=== PATIENT | female | born 1990 | race Caucasian/White ===

== ENCOUNTER 2019-05-10 11:05 | Inpatient (IN) | payer BC, SELFPAY ==
[2019-05-10 11:42] VITALS: BMI 32.1
[2019-05-10] MEDS: Lactated Ringers 1,000 ML 50 ML IV (12:10)
[2019-05-10 12:13] LABS: Absolute Lymphocyte Count 1.52 X10^3/uL (0.83-4.51); Absolute Neutrophil Count 6.5 X10^3/uL (2.0-7.7); Basophil# 0.02 X10^3/uL; Basophil% 0.2 % (0-1); Eosinophil# 0.05 X10^3/uL; Eosinophils% 0.6 % (0-5); Hematocrit 37.9 % (37-47); Hemoglobin 12.6 g/dL (12.0-15.0); Lymphocyte # 1.52 X10^3/ul (4.0); Lymphocyte % 17.4 % (19-41); Mean Corp Hgb Conc 33.2 g/dL (32-36); Mean Corpuscular Hgb 28.4 pg (27.0-32.0); Mean Corpuscular Volume 85.6 fL (81-99); Mean Platelet Vol. 10.6 fl (6.2-12.0); Monocyte# 0.61 X10^3/uL; NRBC Flagged by Analyzer 0 % (0-5); Neutrophil # 6.49 X10^3/uL (2.7-7.7); Neutrophil % 74.3 % (47-70); Platelet Count 205 K/mm3 (150-450); RBC Distribution Width CV 13.6 % (11.6-14.6); RBC Distribution Width SD 42.2 fl (35.1-43.9); Red Blood Count 4.43 M/mm3 (4.2-5.4); White Blood Count 8.7 K/mm3 (4.4-11.0)
--- NOTE | 2019-05-10 16:11 | PCM.HP.OB ---
- Problem List (1) Premature rupture of membranes Status: Acute (2) Term Status: Acute History Date of Admission: 05/10/19 Final SOUMYA: 05/11/19 Gestational age: 39 Weeks and 6 Days History of this : This is a 29 year-old, G [1], P [0], at 39 weeks gestational age presented to L&D with complaint of PROM at 1000 this am. Clear fluid. Grossly ruptured upon presentation. Contractions irregular and infrequent, mild. Denies headache, visual changes, chest pain, shortness of breath, or vaginal bleeding. Good movement. Uncomplicated course. Allergies No Known Allergies Allergy (Verified 05/10/19 11:51) Home Medications: Home Medications Vits [Prenatabs FA] 1 tab PO DAILY 05/10/19 Smoking Status: Never smoker Alcohol: None Number of Fetus(es): 1 NST - FHR Rate Baby A Baseline: 125 Variability:: Moderate Accelerations:: 15 x 15 Decelerations:: None FHR Category:: Category I Uterine Activity:: Irregular, mild History Past Pregnancies: Past Pregnancies Delivery Date Name GA/Weeks Outcome Route Weight Infant Gender Labor Length Anesthesia Delivery Location Provider FOB Labs: HBsAG negative HIV negative Rubella immune RPR negative o positive GBS negative GC/CT negative Expected Delivery Method: Spontaneous Vaginal Review of Systems Constitutional: Denies: Chills, Fever, Weight Change HEENT: Denies: Head Aches, Sinus Congestion, Sinus Drainage Cardiovascular: Denies: Chest Pain, Palpitations Respiratory: Denies: Cough, Shortness of breath at rest, Sputum production Gastrointestinal: Denies: Abdominal Pain, Nausea, Vomiting Genitourinary: Denies: Dysuria Psychiatric: Denies: Anxiety, Depression, Homicidal Ideations, Suicidal Ideations Physical Exam General: Alert, Oriented x3, Cooperative HEENT: Atraumatic, Normocephalic Cardiovascular: Regular rate, Regular Rhythm, No murmurs Lungs: Clear to auscultation, Normal air movement, No rhonchi, No wheeze Abdomen: Soft, Gravid Extremities:: No edema Neurological: Deep Tendon Reflexes 2+/4 and Symmetrical. Negative for: Clonus PORTFOLIO CONSULTANT: Normal external genitalia Estimated gestational size: Appropriate for gestational size Presentation: Cephalic Cervix Dilation (cm): 0 - Per nursing staff Station: -3 Effacement (%): 0 Assessment/Plan All Active Problems Premature rupture of membranes (Acute) Term (Acute) This is a 29 year-old, G [2], P [1001], at 39 weeks gestational age. Category 1 FHT PROM P: 1) Routine labs, admit to L&D 2) Planning epidural for pain management 3) Discussed option for expectant management vs. active management. Patient would like to proceed with active management. Reviewed r/b/a of cytotec then pitocin, consents. Will give PO cytotec then Pitocin if needed. 4) notified of patient status.
[2019-05-10] MEDS: Lactated Ringers 500 ML 999 ML IV ×3 (17:48→23:57)
[2019-05-10] MEDS: Oxytocin 30 units/NS 500 ml 30 UNITS/500 ML IV.SOLN IV (18:30)
[2019-05-11] VITALS (22 sets, daily range): BP systolic 104–126; BP diastolic 55–79; PULSE 69–115; RESP 14–20; TEMP 35.9–36.7; O2SAT 97–100
[2019-05-11] MEDS: Lactated Ringers 500 ML 999 ML IV (00:38)
[2019-05-11] MEDS: Lactated Ringers 1,000 ML 195 ML IV (03:22)
[2019-05-11] MEDS: fentaNYL-bupivacaine (epidural) 100 ML BAG EPIDURAL ×2 (04:37)
[2019-05-11] MEDS: 0.9% Saline Lock 10 ML Syringe IV (06:25)
--- NOTE | 2019-05-11 08:32 | PCM.PN.BLA ---
Progress Note Seen at bedside. Resting comfortably with epidural in place. Patient has been ruptured since 10 AM on 05/10/2019 which is approximately 23 hours. Patient has been on Pitocin for over 12 hours and cervix is 1/2 cm dilated approximately 80% effaced -3 station. I reviewed with the patient definition of failed induction and options would be to continue to allow her to labor with Pitocin as tolerated versus a section. Based on the heart rate tracings the fetus is already having decelerations some prolonged some late and variables. Tracing is a category 2 patient is remote from delivery. Patient agrees to proceed with a primary section at this time.
[2019-05-11] MEDS: Lactated Ringers 1,000 ML 200 ML IV (08:49)
[2019-05-11] MEDS: Cefazolin 2 GM in 0.9% Normal Saline 100 ML IV (08:58)
--- NOTE | 2019-05-11 09:39 | OP.PCM_ITS ---
Report of Operation account support associate: Zaria Loyola Type of Anesthesia:: Epidural Specimen's removed: placenta Drains: smith Fluids Replaced: 1100 Grafts/Implants Used: none - Complications none Delivery Classification: SANDOVAL Final SOUMYA: 05/11/19 Final SOUMYA Source: US <20 weeks Gestational age: 40 Weeks and 0 Days Indications: Spontaneous rupture of membranes x23 hours, failed induction after over 13 hours of Pitocin, category 2 heart rate tracing remote from delivery Description of Procedure: After informed consent was obtained the patient was taken the operating room. She was then placed in the supine position. She was prepped and draped in the normal sterile fashion. Epidural Anesthesia was found to be adequate. At this time a Pfannenstiel skin incision was made with a knife was carried down to the underlying layer of the fascia. The fascial incision was then extended laterally using curved Quintanilla scissor. Tensions was then turned to the superior aspect of the fascial edge was grasped with 2 straight [place] clamps tented up and the rectus muscle dissected off sharply using curved Quintanilla scissor. Attention was then turned to the inferior aspect where again [place] clamps were placed in the rectus muscles were tented up and the fascia was dissected off sharply using the curved Quintanilla scissor. Rectus muscles were then in the midline bluntly and peritoneum was entered bluntly. Gentle opposing traction was placed. At this time the vesicouterine peritoneum was identified. Scalpel was used to make a uterine incision in a low transverse fashion. The uterus was then entered bluntly gentle opposing traction was placed to extend this incision. amniotic fluid still clear. Infant's head (noted to be in transverse position) was brought to the uterine incision was delivered atraumatically. delayed cord clapming- Cord was clamped and cut infant was handed to the waiting nursery team. The Placenta was removed from the uterus. The uterus was then removed from the abdominal cavity. The uterus was cleared of all clots and debris using a lap. At this time the uterine incision was reapproximated using #1 Vicryl in a running locked fashion. Followed by a second imbricating layer using #1 Vicryl. Hemostasis was appreciated. Posterior cul-de-sac was then cleared of all clots and debris. Uterus was placed back in the abdominal cavity. Gutters were cleared of all clots and debris. Uterine incision was reevaluated and noted to be of good hemostasis. Surgicel powder placed for any oozing. At this time the peritoneum and muscle was grasped with Kellys reapproximated using #2 Vicryl suture in a running fashion. Fascia was then reapproximated using #1 Vicryl in a running fashion. Subcu layer was reapproximated with #2 0 plain gut suture in an interrupted fashion. Subcu layer was closed using 4-0 Monocryl in a subcu fashion. Dry sterile dressing was applied. Instrument lap needle count correct ?2. Anticipated normal postoperative course. Amniotic Membrane Rupture Type: Spontaneous Amniotic Fluid Description: Clear Drain: Smith to straight drain Fluids Replaced: 1100 Cord Entanglement: None Cord Vessel Description: 3 Vessels Esitmated Blood Loss (ml): 600 Infant Gender: Male (1 minute): 9 (5 minute): 9 Delayed cord clamping: Yes Pre-op Antibiotic Given: Zithromax 500 mg/5 mL X1 Pt instructed on risks of surgery: Bleeding, Anesthesia Risks, Infection, Injury to surrounding structure(s) including bowel and bladder Complications: None - Admit VTE Documentation VTE Present on Admission: Yes VTE Mechan Device Prophylaxis: SCD's VTE Pharm Prophylaxis ordered?: Yes
[2019-05-11] MEDS: Oxytocin 30 units/NS 500 ml 30 UNITS/500 ML IV.SOLN 167 UNITS IV (10:08)
[2019-05-11] MEDS: Lactated Ringers 1,000 ML 100 ML IV ×2 (12:47→22:08)
[2019-05-11] MEDS: Ketorolac 30 MG/ML Syringe IV ×2 (17:17→22:07)
[2019-05-12] VITALS (8 sets, daily range): BP systolic 119–135; BP diastolic 72–76; PULSE 90–103; RESP 16–18; TEMP 36.1–37; O2SAT 99–100
[2019-05-12] MEDS: 0.9% Saline Lock 10 ML Syringe 5 ML IV ×4 (03:34→21:26)
[2019-05-12] MEDS: Ketorolac 30 MG/ML Syringe IV ×4 (03:34→21:25)
[2019-05-12] MEDS: Enoxaparin 40 MG/0.4 ML Syringe SC (05:25)
[2019-05-12 06:04] LABS: Hematocrit 27.1 % (37-47); Hemoglobin 8.8 g/dL (12.0-15.0); Mean Corp Hgb Conc 32.5 g/dL (32-36); Mean Corpuscular Hgb 29.1 pg (27.0-32.0); Mean Corpuscular Volume 89.7 fL (81-99); Mean Platelet Vol. 10.8 fl (6.2-12.0); Platelet Count 167 K/mm3 (150-450); RBC Distribution Width SD 45.5 fl (35.1-43.9); Red Blood Count 3.02 M/mm3 (4.2-5.4); White Blood Count 6.6 K/mm3 (4.4-11.0)
[2019-05-12] MEDS: Acetaminophen 500 MG Tablet 1000 MG PO ×2 (07:20→17:49)
--- NOTE | 2019-05-12 07:52 | PCM.PN.OB ---
Patient Problems: Active and Suspected Problems Premature rupture of membranes (Acute) Term (Acute) Subjective: Patient seen up to chair nursing baby. Patient reports is tender at incision site. She denies any chest pain, shortness of breath, dizziness, nausea, vomiting. Patient reports that she is not passing flatus yet. Patient states she is voiding without difficulty. Lochia is mild. - Physical Exam General: Alert, Oriented x3 Abdomen: Soft, Non-Distended, - - Fundus firm. Incision dressing is dry and intact. Her abdomen is appropriately tender Extremities: No Calf Tenderness Vital Signs Temp Pulse Resp BP Pulse Ox 97.0 F L 99 16 122/72 H 99 05/12/19 03:27 05/12/19 06:00 05/12/19 06:00 05/12/19 03:27 05/12/19 06:00 Oxygen Delivery Method Room Air Weight: 98.8 kg Body Mass Index (BMI) 32.1 Intake and Output for Last 24 Hours 05/10/19 05/11/19 05/12/19 23:59 23:59 23:59 Intake Total 2729.92 / 2729.92 7788.59 / 7788.59 848.33 / 848.33 Output Total 1100 / 1100 2025 / 2025 1600 / 1600 Balance 1629.92 / 1629.92 5763.59 / 5763.59 -751.67 / -751.67 Laboratory Tests Past 24 Hrs 05/12/19 05:24 WBC 6.6 RBC 3.02 L Hgb 8.8 L Hct 27.1 L MCV 89.7 MCH 29.1 MCHC 32.5 RDW Std Deviation 45.5 H RDW Coeff of Vandana 14.0 Plt Count 167 MPV 10.8 Medical Necessity - Tobacco Use Smoking Status: Never smoker Assessment/Plan All Active Problems Premature rupture of membranes (Acute) Term (Acute) Postop day #1. Acute blood loss anemia Repeat CBC at noon to make sure it is stable. Anticipate that some of this is hemodilution And her vital signs Ambulation Pain management
[2019-05-12 13:23] LABS: Hematocrit 28.6 % (37-47); Hemoglobin 9.2 g/dL (12.0-15.0); Mean Corp Hgb Conc 32.2 g/dL (32-36); Mean Corpuscular Hgb 28.8 pg (27.0-32.0); Mean Corpuscular Volume 89.7 fL (81-99); Mean Platelet Vol. 10.2 fl (6.2-12.0); Platelet Count 183 K/mm3 (150-450); RBC Distribution Width CV 13.9 % (11.6-14.6); RBC Distribution Width SD 45.1 fl (35.1-43.9); Red Blood Count 3.19 M/mm3 (4.2-5.4); White Blood Count 7.8 K/mm3 (4.4-11.0)
[2019-05-13 02:01] VITALS: BP 115/65; PULSE 96; RESP 14; TEMP 36; O2SAT 100
[2019-05-13] MEDS: Ketorolac 30 MG/ML Syringe IV (03:44)
[2019-05-13] MEDS: 0.9% Saline Lock 10 ML Syringe 5 ML IV (03:44)
[2019-05-13] MEDS: Enoxaparin 40 MG/0.4 ML Syringe SC (05:57)
[2019-05-13 08:14] VITALS: BP 121/71; PULSE 103; RESP 18; TEMP 35.9
--- NOTE | 2019-05-13 08:14 | PCM.PN.OB ---
Patient Problems: Active and Suspected Problems Premature rupture of membranes (Acute) Term (Acute) Subjective: Patient seen at bedside doing well. Patient reports good pain control. Denies any chest pain, shortness of breath. Patient reports is passing flatus. Voiding without difficulty. Breast-feeding is going well. Ready for DC home today. - Physical Exam General: Alert, Oriented x3 Abdomen: Soft, Non-Distended, Passing Flatus, - - Fundus firm. Incision dressing is dry and intact. Extremities: No Calf Tenderness Vital Signs Temp Pulse Resp BP Pulse Ox 96.8 F L 96 14 115/65 100 05/13/19 02:01 05/13/19 02:01 05/13/19 02:01 05/13/19 02:01 05/13/19 02:01 Oxygen Delivery Method Room Air Weight: 98.8 kg Body Mass Index (BMI) 32.1 Intake and Output for Last 24 Hours 05/11/19 05/12/19 05/13/19 23:59 23:59 23:59 Intake Total 7788.59 / 7788.59 848.33 / 848.33 Output Total 2024 / 2024 1600 / 1600 Balance 5763.59 / 5763.59 -751.67 / -751.67 Laboratory Tests Past 24 Hrs 05/12/19 13:10 WBC 7.8 RBC 3.19 L Hgb 9.2 L Hct 28.6 L MCV 89.7 MCH 28.8 MCHC 32.2 RDW Std Deviation 45.1 H RDW Coeff of Vandana 13.9 Plt Count 183 MPV 10.2 Medical Necessity - Tobacco Use Smoking Status: Never smoker Assessment/Plan All Active Problems Premature rupture of membranes (Acute) Term (Acute) Postop day #2, doing well Routine care Pain management Ambulation DC home
--- NOTE | 2019-05-13 08:19 | DS.PCM_ITS ---
Discharge Summary Date of Admission: 05/10/19 Date of Discharge: 05/13/19 Summary: Was admitted to [facility] on 05/10/2019 with spontaneous rupture membranes-not in active labor. Patient was induced with 1 dose of Cytotec followed by Pitocin. Patient progressed to 1-1/2 cm after 23 hours of rupture and over 12 hours of Pitocin. Patient was counseled on a primary section versus continued labor. Patient agreed with a primary section for failed induction and for a category 2 heart rate tracing remote from delivery. Patient underwent a low transverse section without complication. Patient had a normal uncomplicated postoperative course. Patient discharged home on postoperative day #3 in stable condition Patient Problems: Active and Suspected Problems Premature rupture of membranes (Acute) Term (Acute) - Physical Exam Vital Signs Temp Pulse Resp BP Pulse Ox 96.7 F L 103 H 18 121/71 H 100 05/13/19 08:14 05/13/19 08:14 05/13/19 08:14 05/13/19 08:14 05/13/19 02:01 Oxygen Delivery Method Room Air Weight: 98.8 kg Body Mass Index (BMI) 32.1 Intake and Output for Last 24 Hours 05/11/19 05/12/19 05/13/19 23:59 23:59 23:59 Intake Total 7788.59 / 7788.59 848.33 / 848.33 Output Total 2024 / 2024 1600 / 1600 Balance 5763.59 / 5763.59 -751.67 / -751.67 Laboratory Tests Past 24 Hrs 05/12/19 13:10 WBC 7.8 RBC 3.19 L Hgb 9.2 L Hct 28.6 L MCV 89.7 MCH 28.8 MCHC 32.2 RDW Std Deviation 45.1 H RDW Coeff of Vandana 13.9 Plt Count 183 MPV 10.2
--- NOTE | 2019-05-13 08:19 | DCINST_ITS ---
Discharge Diet: No Restrictions Discharge Activity: Return to Normal Activity, May Not Drive - for 2 weeks, May not drive while taking narcotic pain medications., May Shower, May Take a Tub Bath - in 7 days. May resume sexual activity in: 4-6 weeks Lifting Restrictions: 20 pounds Additional Activity Instructions:: Nothing in the vagina for 4-6 weeks. You may return to work/school in 6 weeks. Call your doctor if your incision/area has: Continuous Slow Oozing, Sudden Increased Bleeding, Increased Pain/ Swelling, Increased Redness, Foul Smelling Discharge Call your doctor if you observe: Fever of 101 or Higher, Using more than one pad per hour - for 2 hours Suture Line Care: Avoid Pulling/Pushing, Avoid Pinching/Bending Cleanse incision/area with: Keep Dressing Clean & Dry Additional Instructions: If you experience any of the following, contact your healthcare provider. * Bleeding that soaks a pad every hour for 2 hours * Fever 100.4 or higher * Unrelieved incision or abdominal pain * Swelling, redness, discharge or bleeding from your incision or episiotomy site * Your incision begins to separate * Problems urinating (including inability to urinate or burning while urinating). * Visual changes * Severe headache * Flu-like symptoms * Pain or redness in one of both of your breasts * Pain, warmth, tenderness or swelling in your legs, especially the calf area * Frequent nausea and vomiting * Symptoms of depression or anxiety If you experience any of the following, call 911 or go to the nearest Emergency Room. * Chest pain * Problems breathing * Seizure activity * Partial or complete paralysis of a body part, slurred speech, weakness or drooping of the face, or a sudden inability to walk or hold your balance Allergies/Adverse Reactions: Allergies No Known Allergies Allergy (Verified 05/10/19 11:51) Medications to take at Discharge Vits [Prenatabs FA ] 1 tab PO DAILY 05/10/19 Ferrous Sulfate 325 mg PO BID #60 tab 05/13/19 Ibuprofen [Motrin] 600 mg PO Q6H PRN PRN #60 tab 05/13/19 Oxycodone HCl/Acetaminophen [Percocet 5/325] 1 tablet PO Q6H PRN PRN 5 Days #10 tablet 05/13/19 SimETHICONE [Mylicon] 80 mg PO PCHS PRN #30 tab 05/13/19 The following prescriptions were given: Ferrous Sulfate 325 mg PO BID #60 tab Transmission Status: Pending to [id number] Ibuprofen [Motrin] 600 mg PO Q6H PRN PRN #60 tab PRN Reason: Mild Pain (-11/23) Transmission Status: Pending to [id number] SimETHICONE [Mylicon] 80 mg PO PCHS PRN #30 tab PRN Reason: Indigestion/stomach pain Transmission Status: Pending to [id number] Oxycodone HCl/Acetaminophen [Percocet 5/325] 1 tablet PO Q6H PRN PRN 5 Days #10 tablet PRN Reason: Pain Transmission Status: Received by [id number] Follow-Up: Call to make an appointment with your doctor for an incision check in 1-2 weeks. You will also need a 6 week post- follow up appointment. Test results from this visit will be discussed in further detail at your follow- up appointment, if applicable. Please Follow Up With: Morena Finn MD - Call to make an appointment for an incision check in 1-2 [phone] When: You will need a post- check in 6 weeks. Primary Care Physician: Anthony Hooks MD [Primary Care Provider] -
== END 2019-05-13 11:45 | disposition home or self-care (01) | DRG 787 ==
PROVIDERS: Obstetrics & Gynecology; Admitting Provider Obstetrics & Gynecology; Family Provider Internal Medicine; PCP Internal Medicine; Referring Provider Obstetrics & Gynecology; Visit Provider Obstetrics & Gynecology
DX: O76 Abnormality in fetal heart rate and rhythm complicating labor and delivery (principal); D62 Acute posthemorrhagic anemia; O61.9 Failed induction of labor, unspecified; O99.02 Anemia complicating childbirth; O42.92 Full-term premature rupture of membranes, unspecified as to length of time between rupture and onset of labor; Z37.0 Single live birth; Z3A.39 39 weeks gestation of pregnancy
CPT/HCPCS: 59025; 59050; 76815; 85025; 85027; 86850; 86900; 86901; 99218; J7120; A4216; G0378; J2405